=== PATIENT | male | born 1945 | race Caucasian/White ===

== ENCOUNTER 2024-04-19 17:12 | Emergency (ER) | payer OTHER, MEDICARE ==
[2024-04-19] MEDS ORDERED: Sodium Chloride 0.9% 10 ML Syringe FLUSH PRN (17:20)
[2024-04-19] MEDS ORDERED: Naloxone 0.4 MG/ML SDV IVPUSH PRN (17:41)
[2024-04-19] MEDS: fentaNYL 50 MCG/ML SDV IVPUSH ONE ×3 (17:45→21:38)
[2024-04-19 17:50] LABS: BASOPHILS ABSOLUTE AUTO 0.01 K/uL (0.00-0.20); BASOPHILS PERCENT AUTO 0.1 % (0.0-2.0); HEMATOCRIT 39.7 % (39.0-49.0); LYMPHOCYTES PERCENT AUTO 5.9 % (10.0-50.0); MEAN CORPUSCULAR HEMOGLOBIN 33.5 pg (28.2-33.3); MEAN CORPUSCULAR HGB CONC 32.7 g/dL (31.7-36.0); MEAN CORPUSCULAR VOLUME 102.3 fL (84.0-98.0); MONOCYTES ABSOLUTE AUTO 1.33 K/uL (0.00-1.00); NEUTROPHILS ABSOLUTE AUTO 8.28 K/uL (1.40-7.00); PLATELET COUNT,PLT 265 K/uL (150-350); RED BLOOD CELL COUNT 3.88 M/uL (4.33-5.41); RED CELL DISTRIBUTION WIDTH 12.7 % (11.2-14.1); WHITE BLOOD CELL COUNT,WBC 10.2 K/uL (4.0-10.2)
[2024-04-19 17:58] LABS: INR 1.1 (0.9-1.1); PROTHROMBIN TIME 10.8 SEC (9.0-11.1); PTT,PARTIAL THROMBOPLSTIN TIME 32.8 SEC (23.6-29.8)
[2024-04-19 18:11] LABS: ALBUMIN 2.9 g/dL (3.4-5.0); ANION GAP 11.8 meq/L (7-15); BILIRUBIN TOTAL 0.8 mg/dL (0.2-1.0); CALCIUM 9.3 mg/dL (8.5-10.1); CARBON DIOXIDE,CO2 30.1 mmol/L (21.0-32.0); CREATININE 1.01 mg/dL (0.51-1.17); EST CRCL DRUG DOSING (CG) 64.39 mL/min; POTASSIUM,K 3.9 mmol/L (3.5-5.1); PROTEIN TOTAL,TP 6.7 g/dL (6.4-8.2)
[2024-04-19] MEDS: Iopamidol 755 Mg/ML 100 ML Bottle IVPUSH ONE (18:34)
[2024-04-19] MEDS: Cefepime 2 GM Vial ONE (18:43)
[2024-04-19] MEDS: Albuterol/Ipratropium 3.0-0.5 MG/3 ML Neb Soln NEB ONE (19:02)
[2024-04-19 19:08] LABS: HCO3 ARTERIAL,POC 26 mmol/L (22-26); O2 SATURATION ARTERIAL,POC 91.7 % (95-98); PCO2 ARTERIAL,POC 36 mmHg (35-48); PH ARTERIAL,POC 7.5 pH (7.35-7.45); PO2 ARTERIAL,POC 59 mmHg (83-108)
[2024-04-19 19:09] LABS: BASE EXCESS ARTERIAL,POC 2 mmol/L (-2-3); TCO2 ARTERIAL,POC 25.7 mmol/L (23-27)
[2024-04-19 19:22] LABS: APPEARANCE,URINE SLIGHTLY CLOUDY; BILIRUBIN,URINE MODERATE (NEGATIVE); COLOR,URINE DARK YELLOW; GLUCOSE,URINE NEGATIVE (NEGATIVE); KETONES,URINE 40 mg/dL (NEGATIVE); LEUKOCYTE ESTERASE,URINE NEGATIVE (NEGATIVE); NITRITE,URINE NEGATIVE (NEGATIVE); OCCULT BLOOD,URINE TRACE-INTACT (NEGATIVE); PROTEIN,URINE 100 mg/dL (NEGATIVE); UROBILINOGEN,URINE 0.2 E.U./dL (0.2-1.0)
[2024-04-19] MEDS: methylPREDNISolone Sodium Succinate 125 MG/2 ML SDV IVPUSH ONE (19:38)
[2024-04-19] MEDS: Nicotine 21 MG/24 Hr Patch TRDERM ONE (19:51)
[2024-04-19] MEDS: Sodium Chloride 0.9% 10 ML Syringe FLUSH PRN (19:52)
[2024-04-19 20:15] LABS: BACTERIA,URINE FEW /HPF (NONE TO FEW); EPITHELIAL CELLS,URINE RARE /LPF; MUCUS,URINE MANY /LPF (NEGATIVE); RBC,URINE 0-5 /HPF; WBC,URINE 0-5 /HPF
[2024-04-19] MEDS: Vancomycin 1 GM SDV ONE (21:41)
[2024-04-19] MEDS: Cefepime 2 GM in Sodium Chloride 0.9% 50 ML IV ONE (21:41)
== END 2024-04-19 22:15 ==
LOC: LL.ED 17:12
DX: S22.41XA Multiple fractures of ribs, right side, initial encounter for closed fracture (principal); J16.8 Pneumonia due to other specified infectious organisms; J44.1 Chronic obstructive pulmonary disease with (acute) exacerbation; Z88.1 Allergy status to other antibiotic agents; Z79.899 Other long term (current) drug therapy; W19.XXXA Unspecified fall, initial encounter
CPT/HCPCS: 36415; 36600; 71045; 71275; 80053; 81001; 82803; 83605; 83880; 84484; 85025; 85379; 85610; 85730; 87040; 93005; 94640; 94761; 96365; 96375; 96376; 99285; A9270; J0692; J2919; J3010; J3370; J7050; Q9967; J3490; J7620-GY

== ENCOUNTER 2024-04-25 08:32 | Inpatient (IN) | payer MEDICARE ==
[2024-04-25] MEDS ORDERED: Albuterol 6.7 GM Inhaler INH PRN (15:00)
[2024-04-25] MEDS ORDERED: LIDOCAINE 5% TOP PRN (15:12)
[2024-04-25] MEDS ORDERED: Non-Formulary Medication 1 Each (Rimegepant Sulfate [Nurtec Odt] 75 MG Tab.Rapdis) PO PRN (15:12)
[2024-04-25] MEDS: Acetaminophen/HYDROcodone 325-5 MG Tab PO PRN (17:05)
[2024-04-25] MEDS: Amoxicillin/Clavulanate K 875-125 MG Tab PO SCH (17:05)
[2024-04-25] MEDS: Methotrexate 2.5 MG Tab PO SCH (18:07)
[2024-04-25] MEDS: Nortriptyline 25 MG Cap PO SCH (19:11)
[2024-04-25] MEDS: Enoxaparin 40 MG/0.4 ML Syringe SUBCUT SCH (19:12)
[2024-04-25] MEDS: Melatonin 3 MG Tab PO SCH (19:13)
[2024-04-25] MEDS ORDERED: Non-Formulary Medication 1 Each (Melatonin [Melatonin] 5 MG Tablet) PO SCH (20:00)
[2024-04-26] MEDS: Melatonin 3 MG Tab ONE (04:34)
[2024-04-26] MEDS: Folic Acid 1 MG Tab PO SCH (07:28)
[2024-04-26] MEDS: Cyanocobalamin (Vitamin B12) 1,000 MCG Tab PO SCH (07:28)
[2024-04-26] MEDS: Clopidogrel 75 MG Tab PO SCH (07:28)
[2024-04-26] MEDS: Lisinopril 20 MG Tab PO SCH (07:29)
[2024-04-26] MEDS: atorvaSTATin 40 MG Tab PO SCH (07:30)
[2024-04-26] MEDS: amLODIPine 5 MG Tab PO SCH (07:30)
[2024-04-26] MEDS: Metoprolol Succinate 50 MG Tab.ER PO SCH (07:31)
[2024-04-26] MEDS: Nicotine 21 MG/24 Hr Patch TRDERM SCH (07:33)
[2024-04-26] MEDS: Remove Patch NICOTINE PATCH TRDERM SCH (07:35)
[2024-04-26] MEDS ORDERED: [UNRECOGNIZED DRUG - OTHER] PO SCH (08:00)
[2024-04-26] MEDS: predniSONE 20 MG Tab PO SCH (08:25)
[2024-04-26 09:45] LABS: BASOPHILS ABSOLUTE AUTO 0.01 K/uL (0.00-0.20); BASOPHILS PERCENT AUTO 0.1 % (0.0-2.0); EOSINOPHILS ABSOLUTE AUTO 0.06 K/uL (0.00-0.50); EOSINOPHILS PERCENT AUTO 0.5 % (0.0-5.0); HEMATOCRIT 38.5 % (39.0-49.0); HEMOGLOBIN 12.6 g/dL (13.1-16.8); LYMPHOCYTES ABSOLUTE AUTO 2.22 K/uL (0.50-3.50); LYMPHOCYTES PERCENT AUTO 16.9 % (10.0-50.0); MEAN CORPUSCULAR HEMOGLOBIN 33.3 pg (28.2-33.3); MEAN CORPUSCULAR HGB CONC 32.7 g/dL (31.7-36.0); MEAN CORPUSCULAR VOLUME 101.9 fL (84.0-98.0); MONOCYTES ABSOLUTE AUTO 1.18 K/uL (0.00-1.00); NEUTROPHILS ABSOLUTE AUTO 9.63 K/uL (1.40-7.00); NEUTROPHILS PERCENT AUTO 73.5 % (45.0-80.0); PLATELET COUNT,PLT 365 K/uL (150-350); RED BLOOD CELL COUNT 3.78 M/uL (4.33-5.41); RED CELL DISTRIBUTION WIDTH 12.7 % (11.2-14.1); WHITE BLOOD CELL COUNT,WBC 13.1 K/uL (4.0-10.2)
[2024-04-26 10:07] LABS: INR 1.1 (0.9-1.1); PROTHROMBIN TIME 10.6 SEC (9.0-11.1)
[2024-04-26 10:23] LABS: ALBUMIN 2.3 g/dL (3.4-5.0); BILIRUBIN TOTAL 0.4 mg/dL (0.2-1.0); CALCIUM 8.1 mg/dL (8.5-10.1); CARBON DIOXIDE,CO2 31.8 mmol/L (21.0-32.0); CREATININE 1.01 mg/dL (0.51-1.17); EST CRCL DRUG DOSING (CG) 63.31 mL/min; POTASSIUM,K 4.3 mmol/L (3.5-5.1); PROTEIN TOTAL,TP 5.7 g/dL (6.4-8.2)
[2024-04-26 10:34] LABS: ANION GAP 7.5 meq/L (7-15)
[2024-04-26] MEDS: Polyvinyl Alcohol 1.4% Ophth Soln 15 ML Bottle EYEBOTH PRN (16:16)
[2024-04-27] MEDS: Polyethylene Glycol 3350 Powder 17 GM Packet PO PRN (07:46)
[2024-04-27] MEDS ORDERED: Polyethylene Glycol 3350 Powder 17 GM Packet PO SCH (08:00)
[2024-04-27] MEDS: TRELEGY ELLIPTA INH SCH (13:38)
[2024-04-27] MEDS: Calcium Carbonate 500 MG Tab.Chew PO ONE (18:27)
[2024-04-27] MEDS ORDERED: Lidocaine/Epineph/Tetracaine 3 ML Syringe TOP ONE (18:29)
[2024-04-28] MEDS: Acetaminophen 325 MG Tab PO PRN (11:40)
[2024-04-28] MEDS: Famotidine 20 MG Tab PO PRN (17:43)
[2024-04-28] MEDS: Albuterol 0.083% 2.5 MG/3 ML Neb Soln NEB PRN (18:11)
[2024-04-29] MEDS: predniSONE 5 MG Tab PO SCH (07:14)
[2024-04-29] MEDS: Non-Formulary Medication 1 Each INH SCH (12:24)
[2024-05-01] MEDS: Lidocaine 4% 1 each Patch TOP PRN (14:55)
[2024-05-01] MEDS: Diclofenac Sodium 1% Gel 100 GM Tube TOP PRN (14:56)
[2024-05-01] MEDS: amLODIPine 5 MG Tab PO SCH (23:17)
[2024-05-02 15:34] LABS: BASOPHILS ABSOLUTE AUTO 0.02 K/uL (0.00-0.20); BASOPHILS PERCENT AUTO 0.2 % (0.0-2.0); EOSINOPHILS ABSOLUTE AUTO 0.02 K/uL (0.00-0.50); EOSINOPHILS PERCENT AUTO 0.2 % (0.0-5.0); HEMOGLOBIN 11.8 g/dL (13.1-16.8); LYMPHOCYTES ABSOLUTE AUTO 1.32 K/uL (0.50-3.50); LYMPHOCYTES PERCENT AUTO 10.5 % (10.0-50.0); MEAN CORPUSCULAR HEMOGLOBIN 33.1 pg (28.2-33.3); MEAN CORPUSCULAR HGB CONC 31.9 g/dL (31.7-36.0); MEAN CORPUSCULAR VOLUME 103.6 fL (84.0-98.0); MONOCYTES ABSOLUTE AUTO 1.04 K/uL (0.00-1.00); MONOCYTES PERCENT AUTO 8.3 % (2.0-14.0); NEUTROPHILS PERCENT AUTO 80.8 % (45.0-80.0); PLATELET COUNT,PLT 331 K/uL (150-350); RED BLOOD CELL COUNT 3.57 M/uL (4.33-5.41); RED CELL DISTRIBUTION WIDTH 13.3 % (11.2-14.1); WHITE BLOOD CELL COUNT,WBC 12.6 K/uL (4.0-10.2)
[2024-05-02 15:49] LABS: ALBUMIN 2.5 g/dL (3.4-5.0); BILIRUBIN TOTAL 0.3 mg/dL (0.2-1.0); CALCIUM 8.1 mg/dL (8.5-10.1); CARBON DIOXIDE,CO2 30.2 mmol/L (21.0-32.0); CREATININE 0.91 mg/dL (0.51-1.17); EST CRCL DRUG DOSING (CG) 71.91 mL/min; POTASSIUM,K 5.5 mmol/L (3.5-5.1); PROTEIN TOTAL,TP 5.7 g/dL (6.4-8.2)
[2024-05-02 16:12] LABS: ANION GAP 9.3 meq/L (7-15)
== END 2024-05-03 09:59 | disposition home or self-care (01) | DRG 948 ==
LOC: LL.MS 12:52
PROVIDERS: ADMIT Physician Assistant; ATTEND Physician Assistant
DX: R53.1 Weakness (principal); I69.351 Hemiplegia and hemiparesis following cerebral infarction affecting right dominant side; I10 Essential (primary) hypertension; I73.9 Peripheral vascular disease, unspecified; M19.90 Unspecified osteoarthritis, unspecified site; G43.909 Migraine, unspecified, not intractable, without status migrainosus; G62.9 Polyneuropathy, unspecified; F41.9 Anxiety disorder, unspecified; K21.9 Gastro-esophageal reflux disease without esophagitis; E11.40 Type 2 diabetes mellitus with diabetic neuropathy, unspecified; E11.51 Type 2 diabetes mellitus with diabetic peripheral angiopathy without gangrene; M06.9 Rheumatoid arthritis, unspecified; R13.10 Dysphagia, unspecified; E78.5 Hyperlipidemia, unspecified; Z88.1 Allergy status to other antibiotic agents; Z88.7 Allergy status to serum and vaccine; Z88.8 Allergy status to other drugs, medicaments and biological substances; Z79.51 Long term (current) use of inhaled steroids; Z79.02 Long term (current) use of antithrombotics/antiplatelets; Z79.2 Long term (current) use of antibiotics; Z79.899 Other long term (current) drug therapy; Z98.890 Other specified postprocedural states; Z87.891 Personal history of nicotine dependence; J44.9 Chronic obstructive pulmonary disease, unspecified
CPT/HCPCS: 36415; 80053; 83036; 83880; 85025; 85610; 94640; 97110-GO; 97110-GP; 97129-GO; 97162-GP; 97165-GO; 97530-GO; 97530-GP; 97535-GO; A9270-GY; J1650; J7512; J7613-GY; J8610

== ENCOUNTER 2024-11-01 20:38 | Inpatient (IN) | payer MEDICARE ==
[2024-11-01] MEDS: Albuterol/Ipratropium 3.0-0.5 MG/3 ML Neb Soln NEB ONE ×2 (21:12→21:35)
[2024-11-01] MEDS: cefTRIAXone 1 GM Vial IVPUSH STA (21:33)
[2024-11-01] MEDS: Sodium Chloride 0.9% 1,000 ML IV SCH (21:34)
[2024-11-01] MEDS: methylPREDNISolone Sodium Succinate 125 MG/2 ML SDV IVPUSH ONE (21:40)
[2024-11-01 22:02] LABS: BASOPHILS ABSOLUTE AUTO 0.04 K/uL (0.00-0.20); BASOPHILS PERCENT AUTO 0.4 % (0.0-2.0); EOSINOPHILS ABSOLUTE AUTO 0.02 K/uL (0.00-0.50); EOSINOPHILS PERCENT AUTO 0.2 % (0.0-5.0); HEMATOCRIT 39.3 % (39.0-49.0); IMMATURE GRAN ABSOLUTE AUTO 0.03 10^3/uL (0.00-0.04); IMMATURE GRAN PERCENT AUTO 0.3 % (0.0-0.4); LYMPHOCYTES ABSOLUTE AUTO 0.49 K/uL (0.50-3.50); LYMPHOCYTES PERCENT AUTO 5.1 % (10.0-50.0); MEAN CORPUSCULAR HEMOGLOBIN 34.2 pg (28.2-33.3); MEAN CORPUSCULAR HGB CONC 33.1 g/dL (31.7-36.0); MEAN CORPUSCULAR VOLUME 103.4 fL (84.0-98.0); MONOCYTES ABSOLUTE AUTO 1.18 K/uL (0.00-1.00); MONOCYTES PERCENT AUTO 12.2 % (2.0-14.0); NEUTROPHILS PERCENT AUTO 81.8 % (45.0-80.0); PLATELET COUNT,PLT 198 K/uL (150-350); WHITE BLOOD CELL COUNT,WBC 9.7 K/uL (4.0-10.2)
[2024-11-01 22:15] LABS: ANION GAP 11.3 meq/L (7-15); BLOOD UREA NITROGEN,BUN 14 mg/dL (7-18); CARBON DIOXIDE,CO2 29.9 mmol/L (21.0-32.0); CHLORIDE,CL 101 mmol/L (98-107); GLUCOSE RANDOM 130 mg/dL (70-99); POTASSIUM,K 4.2 mmol/L (3.5-5.1); SODIUM,NA 138 mmol/L (136-145)
[2024-11-01 22:16] LABS: ALANINE AMINOTRANSFERASE,ALT 28 U/L (12-78); ALBUMIN 3.7 g/dL (3.4-5.0); ALKALINE PHOSPHATASE 91 IU/L (46-116); ASPARTATE AMNIOTRANSFERASE,AST 17 U/L (15-37); BILIRUBIN TOTAL 0.5 mg/dL (0.2-1.0); CALCIUM 8.6 mg/dL (8.5-10.1); ESTIMATED GFR 69 mL/min (>=60); MAGNESIUM 2.4 mg/dL (1.8-2.4); PROTEIN TOTAL,TP 6.8 g/dL (6.4-8.2)
[2024-11-01] MEDS: Azithromycin 500 MG in Sodium Chloride 0.9% 250 ML IV ONE (22:27)
[2024-11-02] MEDS ORDERED: Diclofenac Sodium 1% Gel 100 GM Tube TOP PRN (00:30)
[2024-11-02] MEDS ORDERED: Lidocaine 4% 1 each Patch TOP PRN (00:30)
[2024-11-02] MEDS: Albuterol/Ipratropium 3.0-0.5 MG/3 ML Neb Soln NEB SCH (03:15)
[2024-11-02 08:41] LABS: APPEARANCE,URINE CLEAR; BILIRUBIN,URINE NEGATIVE (NEGATIVE); COLOR,URINE YELLOW; GLUCOSE,URINE NEGATIVE (NEGATIVE); KETONES,URINE NEGATIVE (NEGATIVE); LEUKOCYTE ESTERASE,URINE NEGATIVE (NEGATIVE); NITRITE,URINE NEGATIVE (NEGATIVE); OCCULT BLOOD,URINE NEGATIVE (NEGATIVE); PH,URINE 6.5 (5.0-9.0); PROTEIN,URINE 30 mg/dL (NEGATIVE); UROBILINOGEN,URINE 0.2 E.U./dL (0.2-1.0)
[2024-11-02 08:53] LABS: RBC,URINE 0-5 /HPF; WBC,URINE 0-5 /HPF
[2024-11-02] MEDS: atorvaSTATin 40 MG Tab PO SCH (09:06)
[2024-11-02] MEDS: Formoterol/Mometasone 100-5 MCG 8.8 GM Inhaler IH SCH (09:06)
[2024-11-02] MEDS: Nicotine 7 MG/24 Hr Patch TRDERM SCH (09:07)
[2024-11-02] MEDS: amLODIPine 5 MG Tab PO SCH (09:07)
[2024-11-02] MEDS: Metoprolol Succinate 50 MG Tab.ER PO SCH (09:07)
[2024-11-02] MEDS: Clopidogrel 75 MG Tab PO SCH (09:07)
[2024-11-02] MEDS: Potassium Chloride 10 MEQ Tab.ER PO SCH (09:07)
[2024-11-02] MEDS: methylPREDNISolone Sodium Succinate 125 MG/2 ML SDV IVPUSH ONE (09:08)
[2024-11-02] MEDS: Furosemide 20 MG/2 ML VIAL IVPUSH SCH (09:22)
[2024-11-02] MEDS ORDERED: Acetaminophen 325 MG Tab PO PRN (10:00)
[2024-11-02 10:33] LABS: ALBUMIN 3.3 g/dL (3.4-5.0); ANION GAP 6.9 meq/L (7-15); BILIRUBIN TOTAL 0.5 mg/dL (0.2-1.0); CALCIUM 8.3 mg/dL (8.5-10.1); CARBON DIOXIDE,CO2 29.1 mmol/L (21.0-32.0); CREATININE 1.24 mg/dL (0.51-1.17); EST CRCL DRUG DOSING (CG) 54.76 mL/min; POTASSIUM,K 4.7 mmol/L (3.5-5.1); PROTEIN TOTAL,TP 6.7 g/dL (6.4-8.2)
[2024-11-02 10:44] LABS: HEMATOCRIT 38.9 % (39.0-49.0); HEMOGLOBIN 12.6 g/dL (13.1-16.8); IMMATURE GRAN ABSOLUTE AUTO 0.02 10^3/uL (0.00-0.04); IMMATURE GRAN PERCENT AUTO 0.4 % (0.0-0.4); LYMPHOCYTES ABSOLUTE AUTO 0.81 K/uL (0.50-3.50); LYMPHOCYTES PERCENT AUTO 14.6 % (10.0-50.0); MEAN CORPUSCULAR HGB CONC 32.4 g/dL (31.7-36.0); MEAN CORPUSCULAR VOLUME 104.9 fL (84.0-98.0); MONOCYTES PERCENT AUTO 1.8 % (2.0-14.0); NEUTROPHILS ABSOLUTE AUTO 4.63 K/uL (1.40-7.00); NEUTROPHILS PERCENT AUTO 83.2 % (45.0-80.0); PLATELET COUNT,PLT 194 K/uL (150-350); RED BLOOD CELL COUNT 3.71 M/uL (4.33-5.41); RED CELL DISTRIBUTION WIDTH 13.9 % (11.2-14.1); WHITE BLOOD CELL COUNT,WBC 5.6 K/uL (4.0-10.2)
[2024-11-02] MEDS ORDERED: Furosemide 20 MG/2 ML VIAL IVPUSH ONE (16:00)
[2024-11-02] MEDS: Melatonin 3 MG Tab PO SCH (19:50)
[2024-11-02] MEDS: Amitriptyline 25 MG Tab PO SCH (19:51)
[2024-11-02] MEDS: cefTRIAXone 1 GM in Sodium Chloride 0.9% 100 ML IV SCH (19:52)
[2024-11-02] MEDS: Azithromycin 500 MG in Sodium Chloride 0.9% 250 ML IV SCH (20:35)
[2024-11-03] MEDS: Acetaminophen/HYDROcodone 325-5 MG Tab PO PRN (05:59)
[2024-11-03] MEDS ORDERED: Sodium Chloride 0.9% 10 ML Syringe FLUSH PRN (07:36)
[2024-11-03 08:57] LABS: EOSINOPHILS ABSOLUTE AUTO 0.01 K/uL (0.00-0.50); EOSINOPHILS PERCENT AUTO 0.1 % (0.0-5.0); HEMATOCRIT 37.1 % (39.0-49.0); IMMATURE GRAN ABSOLUTE AUTO 0.04 10^3/uL (0.00-0.04); IMMATURE GRAN PERCENT AUTO 0.3 % (0.0-0.4); LYMPHOCYTES ABSOLUTE AUTO 1.13 K/uL (0.50-3.50); MEAN CORPUSCULAR HEMOGLOBIN 33.9 pg (28.2-33.3); MEAN CORPUSCULAR HGB CONC 32.3 g/dL (31.7-36.0); MEAN CORPUSCULAR VOLUME 104.8 fL (84.0-98.0); MONOCYTES ABSOLUTE AUTO 0.59 K/uL (0.00-1.00); MONOCYTES PERCENT AUTO 4.2 % (2.0-14.0); NEUTROPHILS ABSOLUTE AUTO 12.38 K/uL (1.40-7.00); NEUTROPHILS PERCENT AUTO 87.4 % (45.0-80.0); PLATELET COUNT,PLT 214 K/uL (150-350); RED BLOOD CELL COUNT 3.54 M/uL (4.33-5.41); RED CELL DISTRIBUTION WIDTH 13.9 % (11.2-14.1); WHITE BLOOD CELL COUNT,WBC 14.2 K/uL (4.0-10.2)
[2024-11-03 09:12] LABS: ANION GAP 9.8 meq/L (7-15); CALCIUM 8.2 mg/dL (8.5-10.1); CARBON DIOXIDE,CO2 28.2 mmol/L (21.0-32.0); CREATININE 1.32 mg/dL (0.51-1.17); EST CRCL DRUG DOSING (CG) 51.44 mL/min; POTASSIUM,K 3.8 mmol/L (3.5-5.1)
[2024-11-03 13:40] VITALS: BP 116/69; PULSE 66
[2024-11-03] MEDS: Azithromycin 250 MG Tab PO ONE (14:14)
== END 2024-11-03 14:51 | disposition home or self-care (01) | DRG 192 ==
LOC: LL.ED 20:38 → UNDOADMIN 23:50 → LL.MS 23:50
PROVIDERS: ADMIT Emergency Medicine; ATTEND Emergency Medicine
DX: S00.01XA Abrasion of scalp, initial encounter (principal); R53.1 Weakness; J44.1 Chronic obstructive pulmonary disease with (acute) exacerbation; R09.02 Hypoxemia; I10 Essential (primary) hypertension; H40.9 Unspecified glaucoma; F17.200 Nicotine dependence, unspecified, uncomplicated; E78.00 Pure hypercholesterolemia, unspecified; I73.9 Peripheral vascular disease, unspecified; M06.9 Rheumatoid arthritis, unspecified; G43.909 Migraine, unspecified, not intractable, without status migrainosus; W01.0XXA Fall on same level from slipping, tripping and stumbling without subsequent striking against object, initial encounter; Y92.019 Unspecified place in single-family (private) house as the place of occurrence of the external cause; G62.9 Polyneuropathy, unspecified; F41.9 Anxiety disorder, unspecified; F43.10 Post-traumatic stress disorder, unspecified; K21.9 Gastro-esophageal reflux disease without esophagitis; F17.210 Nicotine dependence, cigarettes, uncomplicated; F15.90 Other stimulant use, unspecified, uncomplicated; F39 Unspecified mood [affective] disorder; S01.01XA Laceration without foreign body of scalp, initial encounter; W19.XXXA Unspecified fall, initial encounter; E78.5 Hyperlipidemia, unspecified; Z91.81 History of falling; Z88.1 Allergy status to other antibiotic agents; Z88.7 Allergy status to serum and vaccine; Z88.8 Allergy status to other drugs, medicaments and biological substances; Z79.51 Long term (current) use of inhaled steroids; Z79.899 Other long term (current) drug therapy; Z79.1 Long term (current) use of non-steroidal anti-inflammatories (NSAID); Z79.2 Long term (current) use of antibiotics; Z79.02 Long term (current) use of antithrombotics/antiplatelets; Z86.73 Personal history of transient ischemic attack (TIA), and cerebral infarction without residual deficits; Z98.890 Other specified postprocedural states
CPT/HCPCS: 36415; 70450; 71045; 80048; 80053; 81001; 82550; 83605; 83735; 83880; 84484; 85025; 85379; 86140; 87040; 87428-QW; 94640; 94761; 96361; 96365; 96375; 97161-GP; 99223; 99239; 99285-25; A9270-GY; J0456; J0696; J1940; J2919; J7030; J7620-GY

== ENCOUNTER 2025-08-26 09:50 | Emergency (ER) | payer OTHER, MEDICARE ==
[2025-08-26 10:14] LABS: BASOPHILS ABSOLUTE AUTO 0.02 K/uL (0.00-0.20); BASOPHILS PERCENT AUTO 0.2 % (0.0-2.0); EOSINOPHILS ABSOLUTE AUTO 0.15 K/uL (0.00-0.50); EOSINOPHILS PERCENT AUTO 1.5 % (0.0-5.0); IMMATURE GRAN ABSOLUTE AUTO 0.03 10^3/uL (0.00-0.04); IMMATURE GRAN PERCENT AUTO 0.3 % (0.0-0.4); LYMPHOCYTES ABSOLUTE AUTO 1.89 K/uL (0.50-3.50); LYMPHOCYTES PERCENT AUTO 19.3 % (10.0-50.0); MONOCYTES ABSOLUTE AUTO 0.96 K/uL (0.00-1.00); MONOCYTES PERCENT AUTO 9.8 % (2.0-14.0); NEUTROPHILS ABSOLUTE AUTO 6.76 K/uL (1.40-7.00); NEUTROPHILS PERCENT AUTO 68.9 % (45.0-80.0); PLATELET COUNT,PLT 356 K/uL (150-350); RED BLOOD CELL COUNT 3.68 M/uL (4.33-5.41); RED CELL DISTRIBUTION WIDTH 15.3 % (11.2-14.1); WHITE BLOOD CELL COUNT,WBC 9.8 K/uL (4.0-10.2)
[2025-08-26 10:33] LABS: INR 1.1 (0.9-1.1); PTT,PARTIAL THROMBOPLSTIN TIME 22.7 SEC (23.8-34.4)
[2025-08-26 10:46] LABS: ALANINE AMINOTRANSFERASE,ALT 23.0 U/L (12-78); ASPARTATE AMNIOTRANSFERASE,AST 16.0 U/L (15-37); BILIRUBIN TOTAL 0.3 mg/dL (0.2-1.0); BLOOD UREA NITROGEN,BUN 10.0 mg/dL (7-18); CARBON DIOXIDE,CO2 30.6 mmol/L (21.0-32.0); CHLORIDE,CL 102.0 mmol/L (98-107); CREATININE 1.23 mg/dL (0.51-1.17); EST CRCL DRUG DOSING (CG) 53.98 mL/min; GLUCOSE RANDOM 121.0 mg/dL (70-99); POTASSIUM,K 4.4 mmol/L (3.5-5.1); PRO B-TYPE NATRIUR PEPT,BNPPRO 528.0 pg/mL (0-125); PROTEIN TOTAL,TP 6.8 g/dL (6.4-8.2); SODIUM,NA 141.0 mmol/L (136-145)
[2025-08-26 10:47] LABS: ESTIMATED GFR 60.0 mL/min (>=60)
[2025-08-26] MEDS: Sodium Chloride 0.9% 10 ML Syringe FLUSH PRN (10:49)
[2025-08-26] MEDS: Alum Hydrox/Mag Hydrox/Simeth 30 ML, Lidocaine 2% 15 ML PO ONE (11:26)
[2025-08-26] MEDS: methylPREDNISolone Sodium Succinate 40 MG/1 ML SDV IVPUSH ONE (11:26)
[2025-08-26] MEDS: Iopamidol 755 Mg/ML 100 ML Bottle IVPUSH ONE (12:14)
== END 2025-08-26 13:35 | disposition home or self-care (01) ==
LOC: LL.ED 09:50
DX: K21.9 Gastro-esophageal reflux disease without esophagitis (principal); I10 Essential (primary) hypertension; E78.00 Pure hypercholesterolemia, unspecified; J44.9 Chronic obstructive pulmonary disease, unspecified; Z86.73 Personal history of transient ischemic attack (TIA), and cerebral infarction without residual deficits; Z88.1 Allergy status to other antibiotic agents; Z88.7 Allergy status to serum and vaccine; Z88.8 Allergy status to other drugs, medicaments and biological substances; Z79.899 Other long term (current) drug therapy; Z79.02 Long term (current) use of antithrombotics/antiplatelets
CPT/HCPCS: 36415; 71045; 71275; 80053; 83605; 83690; 83735; 83880; 84484; 85025; 85610; 85730; 93005; 93010; 96361; 96374; 96375; 99284; 99285-25; A9270-GY; J0696; J1920; J2919; J7030; Q9967